=== PATIENT | male | born 2000 | race Caucasian/White ===

== ENCOUNTER → 2022-02-19 12:08 | Outpatient (BNVA) | payer OTHER, SELFPAY | PROVIDERS: Visit Provider Nurse Practitioner | DX: S99.912A Unspecified injury of left ankle, initial encounter (principal); W19.XXXA Unspecified fall, initial encounter | CPT/HCPCS: 73610 ==

== ENCOUNTER 2023-04-15 18:04 | Emergency (ER) | payer OTHER, SELFPAY ==
[2023-04-15 18:13] VITALS: BP 179/95; PULSE 61; RESP 14; TEMP 36.7; O2SAT 98; BMI 27.3
[2023-04-15 18:50] VITALS: PULSE 82; RESP 18; TEMP 36.8
[2023-04-15] MEDS: tetanus-dipt-pertussis 0.5 mL SDV IM (19:01)
[2023-04-15 19:40] LABS: HIV 1 & 2 Antibody Non-Reactive (Non-Reactiv); HIV 1 & 2 Antigen Non-Reactive (Non-Reactiv)
[2023-04-15 20:27] LABS: Hepatitis A Antibody IgM Non-Reactive (Nonreactive); Hepatitis B Core IgM Non-Reactive (Nonreactive); Hepatitis B Surface Antigen Non-Reactive (Nonreactive); Hepatitis C Virus Antibody Non-Reactive (Nonreactive)
--- NOTE | 2023-04-16 17:30 | W.ED.WOUNDLC ---
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 Onset (ago): minute(s) Extremity Location: Left: hand Place: work Patient tetanus UTD: No Context: accidental Associated symptoms: Reports no associated symptoms; Denies fever(s) Treatments prior to arrival: other (scrubbed soap and water) Review of Systems Const: Denies: fever(s) PFSH ED PFSH: Social History Smoking and tobacco status: former smoker Physical Exam Const: COMMON NORMALS: no acute distress and healthy appearing Eye: COMMON NORMALS: Equal, round and reactive pupils present and EOMs intact bilaterally PUPIL: Yes Equal, round and reactive pupils present Neck/C-Spine: GENERAL: Yes trachea midline Chest: CHEST: Yes Symmetrical chest wall rise Resp: COMMON NORMALS: normal respiratory effort Cardio: COMMON NORMALS: regular rate and regular rhythm RATE: regular rate RHYTHM: regular rhythm Skin: NARRATIVE SKIN EXAM: 0.5cm abrasion to L third finger dorsum. Course Vital Signs: Vital signs: Vital Signs Temperature 98.3 F 04/15/23 18:50 Pulse Rate 82 04/15/23 18:50 Respiratory Rate 18 04/15/23 18:50 Blood Pressure 179/95 04/15/23 18:13 Pulse Oximetry 98 04/15/23 18:13 Oxygen Delivery Me thod Room Air 04/15/23 18:13 MDM - Wound/Laceration Medical Decision Making Tetanus updated. HIV and hepatitis testing complete. Likely source has been tested as well. Pt has elected to wait for source results to decide treatment or no. Will follow up [facility] for further testing. Lab Data Laboratory Results Hepatitis A IgM Ab Non-reactive (Nonreactive) 04/15/23 18:32 Hep Bs Antigen Non-reactive (Nonreactive) 04/15/23 18:32 Hep B Core IgM Ab Non-reactive (Nonreactive) 04/15/23 18:32 Hepatitis C Antibody Non-reactive (Nonreactive) 04/15/23 18:32 HIV 1&2 Ab & HIV 1 Ag Non-reactive (Non-Reactiv) 04/15/23 18:32 HIV 1&2 Antibody Non-reactive (Non-Reactiv) 04/15/23 18:32 Discharge Plan Discharge Patient Disposition: Home Clinical Impression: Needle stick injury of finger Condition: Stable Prescriptions: No Action No Known Home Medications Discharge Orders: Discharge ED (Routine); Ordered 04/15/23 Ordered By: Linus Mehta Patient Instructions: Blood/Body Fluid Exposure - Occupational, Needle Stick Injuries (ED) Activity Restrictions/Additional Instructions: You should have your HIV and Hepatitis panel checked again at 6 weeks and again at 6 months. Occupational medicine can provide assistance with this. Return for any problems. We will contact you if either you or the patient are positive or HIV or hepatitis. Coding Level of Care Code ED Insurance Claims Clerk for Lina Machuca
--- NOTE | 2023-04-25 13:18 | DCPLANNER ---
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 Pitts.
== END 2023-04-15 19:04 | disposition home or self-care (01) ==
PROVIDERS: Emergency Provider Emergency Medicine
DX: S60.413A Abrasion of left middle finger, initial encounter (principal); W46.1XXA Contact with contaminated hypodermic needle, initial encounter; Y99.0 Civilian activity done for income or pay; Z87.891 Personal history of nicotine dependence; Z77.21 Contact with and (suspected) exposure to potentially hazardous body fluids; Z23 Encounter for immunization
CPT/HCPCS: 80074; 87806; 90471; 90715; 99283

== ENCOUNTER → 2023-05-18 08:35 | Outpatient (BNVA) | payer OTHER, SELFPAY | PROVIDERS: PCP Family Medicine; Visit Provider Family Medicine | DX: Z51.81 Encounter for therapeutic drug level monitoring (principal); Z13.220 Encounter for screening for lipoid disorders; R53.81 Other malaise; R53.83 Other fatigue; R03.0 Elevated blood-pressure reading, without diagnosis of hypertension | CPT/HCPCS: 80053; 80061; 84403; 85025 ==

== ENCOUNTER → 2023-07-02 12:58 | Outpatient (BNVA) | payer OTHER, SELFPAY | PROVIDERS: PCP Family Medicine; Visit Provider Family Medicine | DX: Z02.1 Encounter for pre-employment examination (principal); Z23 Encounter for immunization; Z00.00 Encounter for general adult medical examination without abnormal findings | CPT/HCPCS: 80307 ==

== ENCOUNTER → 2025-07-29 08:14 | Outpatient (BNVA) | payer OTHER, SELFPAY | PROVIDERS: PCP Family Medicine; Visit Provider Family Medicine | DX: Z51.81 Encounter for therapeutic drug level monitoring (principal); Z00.00 Encounter for general adult medical examination without abnormal findings; Z13.6 Encounter for screening for cardiovascular disorders; R53.81 Other malaise; R53.83 Other fatigue | CPT/HCPCS: 80053; 80061; 84403; 85025 ==

== ENCOUNTER → 2025-08-26 07:32 | Outpatient (BNVA) | payer OTHER, SELFPAY | PROVIDERS: PCP Family Medicine; Visit Provider Family Medicine | DX: R74.01 Elevation of levels of liver transaminase levels (principal); R17 Unspecified jaundice; Z51.81 Encounter for therapeutic drug level monitoring | CPT/HCPCS: 80053; 82247; 82248; 82977; 83615 ==

== ENCOUNTER 2025-09-18 06:22 | Outpatient (CLI) | payer OTHER, SELFPAY ==
--- NOTE | 2025-09-18 06:30 | USR_ITS ---
PROCEDURE INFORMATION: Exam: US Abdomen; Limited Exam date and time: 09/18/2025 6:43 AM Age: 25 years old Clinical indication: Abnormal findings; Abnormal lab test; Other: Elevated bilirubin TECHNIQUE: Imaging protocol: Real time ultrasound of the abdomen with image documentation. Limited exam focused on the region of clinical interest. COMPARISON: No relevant prior studies available. FINDINGS: Liver: The liver appears normal. Gallbladder: The gallbladder is normal. Pancreas: The pancreas is predominantly obscured. Right kidney: The right kidney is normal. Aorta: The abdominal aorta and IVC are normal. US/US liver [id number] IMPRESSION: No acute findings.
== END 2025-09-18 06:23 | disposition home or self-care (01) ==
LOC: RAD 06:24
PROVIDERS: PCP Family Medicine; Visit Provider Family Medicine
DX: R17 Unspecified jaundice (principal)
CPT/HCPCS: 76705